=== PATIENT | female | born 1995 | race African-American/Black ===

== ENCOUNTER 2021-11-25 18:43 | Emergency (ER) | payer OTHER ==
[~2021-11-25] VITALS: Ht 162.6 cm; Wt 77.3 kg
[2021-11-25] MEDS ORDERED: PERTUSS(ACELL),DIPH,TET VAC/PF 0.5 ML SYRINGE IM. ONE (20:15)
[2021-11-25] MEDS ORDERED: BACITRACIN 0.9 GM PACKET OINTMENT TP ONE (20:15)
[2021-11-25] MEDS ORDERED: LIDOCAINE 1%/EPI 1:200,000/PF 30 ML VIAL PERC ONE (20:15)
[2021-11-25 20:35] VITALS: BP 133/71
== END 2021-11-25 21:32 | disposition home or self-care (01) ==
LOC: EMS 18:43
DX: S81.012A Laceration without foreign body, left knee, initial encounter (principal); X58.XXXA Exposure to other specified factors, initial encounter; Y93.89 Activity, other specified; Y92.89 Other specified places as the place of occurrence of the external cause; Y99.8 Other external cause status
CPT/HCPCS: 12004; 90471; 90715; 99283; J3490